=== PATIENT | male | born 1945 | race Caucasian/White ===

== ENCOUNTER 2016-04-15 13:42 | Outpatient (CLI) | payer OTHER | END 2016-04-15 13:43 | disposition home or self-care (01) | DRG 563 | LOC: CONVCARE 13:42 | PROVIDERS: ATTEND Orthopaedic Surgery | DX: S83.412A Sprain of medial collateral ligament of left knee, initial encounter (principal); Z96.652 Presence of left artificial knee joint | CPT/HCPCS: 73562 ==

== ENCOUNTER 2017-06-23 11:50 | Outpatient (CLI) | payer OTHER | END 2017-06-23 11:51 | disposition home or self-care (01) | DRG 561 | LOC: CONVCARE 11:50 | PROVIDERS: ATTEND Orthopaedic Surgery | DX: Z47.1 Aftercare following joint replacement surgery (principal); M79.662 Pain in left lower leg; Z96.652 Presence of left artificial knee joint; M79.89 Other specified soft tissue disorders | CPT/HCPCS: 73562 ==